=== PATIENT | male | born 1980 | race Caucasian/White ===

== ENCOUNTER 2017-07-16 09:27 | Emergency (ER) | payer OTHER ==
[~2017-07-16] VITALS: Ht 200.7 cm; Wt 112.5 kg
[2017-07-16 09:40] VITALS: BP 139/89
--- NOTE | 2017-07-16 10:21 | PHYS DOC ---
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 Patient states he's had one day severe pain at the right first MCP joint consistent with prior gout symptoms. He denies any injury no fever chills sweats or myalgias no numbness weakness or radiating symptoms. Patient states colchicine and ibuprofen typically handle his pain. He is refusing narcotic medications. Pain is severe worse with movement better with colchicine. Vital signs are stable Onset: this morning Severity: severe Pain/Injury Location: left 1st toe Method of Injury: other Modifying Factors: worse with jarring, worse with movement, improves with pain medication Allergies: Coded Allergies: No Known Drug Allergies (Unverified , 07/16/17) Past Medical History Medical History: other (gout hypothyroid) Surgical History: no surgical history Social History Smoker: non-smoker Alcohol: none Drugs: none Review of Systems Constitutional: denies chills, denies fever Respiratory: denies cough, denies shortness of breath Cardiovascular: denies chest pain, denies palpitations Gastrointestinal: denies nausea, denies vomiting Musculoskeletal: see HPI Skin: change in color Psychiatric/Neurological: see HPI Physical Exam General Appearance: WD/WN, no apparent distress Neck: non-tender, supple Cardiovascular/Respiratory: normal peripheral pulses, no respiratory distress Feet: right foot other (right first MTP is red and exquisitely tender consistent with gout) Neurologic/Tendon: normal sensation, normal motor functions, normal tendon functions, responds to pain Psychiatric: alert, oriented x 3 Skin: warm/dry Orders, Labs, Meds Patient received Toradol 60 mg IM as well as colchicine 1.2 mg by mouth in the emergency department. I discussed restriction and [id number] medications signs and symptoms to monitor and indications to return. The patient's questions were answered expressed agreement and understanding with the treatment plan. Departure Time of Disposition: 10:18 Disposition: 01 HOME, SELF-CARE Diagnosis: gouty arthritis recurrence right first MCP joint Condition: GOOD Patient Instructions: Gout, [id number], RICE - Routine Care for Injuries, [id number] Additional Instructions: Please review the patient education materials given by ED staff. EHSAN, see handout. You received 1.2 mg of colchicine in the emergency department. You may repeat 0.6 mg one hour after leaving if symptoms persist then follow dosing instructions on your prescription bottle. Prescription: Colchicine, ibuprofen 800 mg Follow-up at [place] next week for recheck. Return to ED with new or changing symptoms. Go [employer]! OSIRIS HARMAN DO Jul 16, 2017 10:21
[2017-07-16] MEDS ORDERED: IBUP800T19 PO (10:22)
[2017-07-16] MEDS ORDERED: COLCHICINE 0.6 MG TABLET PO ONE (10:45)
[2017-07-16] MEDS ORDERED: KETOROLAC 60 MG/2 ML VIAL. IM ONE (10:45)
== END 2017-07-16 10:40 | disposition home or self-care (01) ==
LOC: ER 09:27
DX: M10.9 Gout, unspecified (principal); M18.9 Osteoarthritis of first carpometacarpal joint, unspecified; E03.9 Hypothyroidism, unspecified
CPT/HCPCS: 96372; 99283; J1885